=== PATIENT | male | born 1990 | race Caucasian/White ===

== ENCOUNTER 2019-01-23 11:24 | Emergency (ER) | payer SELFPAY ==
[~2019-01-23] VITALS: Ht 172.7 cm; Wt 85.0 kg
[~2019-01-23 11:24] MED LIST: FLUO40CA10; GUAN1TAB15; LORA-52; MOUTHWASH; THO25; [UNRECOGNIZED DRUG - CODE]
[2019-01-23 11:33] VITALS: BP 129/92; Ht 172.7 cm; Wt 85.0 kg
--- NOTE | 2019-01-23 13:07 | ERD ---
ER Documentation Chief Complaint Chief Complaint abdominal pain, nausea, vomiting and diarrhea x 3 days HPI 28-year-old male, previously healthy, presents to the emergency department, complaining of 3 days with intermittent episodes of colicky abdominal pain, followed by watery, nonbloody, nonmucous diarrhea, approximately 4 episodes during the last 24 hours. Otherwise, no fever, no chills. Adequate oral intake for solids and fluids. Normal diuresis. ROS All systems reviewed and are negative except as per history of present illness. Medications Home Meds Active Scripts Acetaminophen* (Tylenol*) 325 Mg Tablet, 2 TAB PO Q6 PRN for PAIN AND OR ELEVATED TEMP, #20 TAB Prov:KARI GUIDO MD 01/23/19 Ranitidine Hcl* (Zantac*) 150 Mg Tablet, 150 MG PO BID PRN for EPIGASTRIC PAIN, #20 TAB Prov:KARI UGIDO MD 01/23/19 Ondansetron Hcl* (Zofran*) 4 Mg Tablet, 4 MG PO Q8H PRN for NAUSEA AND/OR VOMITING, #12 TAB Prov:KARI GUIDO MD 01/23/19 Ciprofloxacin Hcl* (Ciprofloxacin Hcl*) 250 Mg Tablet, 250 MG PO BID for 5 Days, #10 TAB Prov:KARI GUIDO MD 01/23/19 Reported Medications Salicylic Acid (Stri-Dex) 55 Ea Med..pad 05/22/10 Gluc Oxid/L-Peroxid/Muramidase (Biotene Mouthwash) 474 Ml Mouthwash 05/22/10 Loratadine (Alavert) 10 Mg Tablet 05/22/10 Chlorpromazine Hcl* (Thorazine*) 25 Mg Tab 05/22/10 Guanfacine Hcl* (Tenex*) 1 Mg Tablet 05/22/10 Fluoxetine Hcl* (Prozac*) 40 Mg Capsule 05/22/10 Allergies Allergies: Coded Allergies: No Known Drug Allergies (Verified Allergy, Mild, 05/22/10) PMhx/Soc Medical and Surgical Hx: pt denies Medical Hx History of Surgery: No Anesthesia Reaction: No Hx Neurological Disorder: No Hx Respiratory Disorders: No Hx Cardiac Disorders: No Hx Psychiatric Problems: No Hx Miscellaneous Medical Probl: No Hx Alcohol Use: No Hx Substance Use: No Hx Tobacco Use: Yes Smoking Status: Current every day smoker FmHx Family History: No diabetes Physical Exam Vitals Vital Signs Date Temp Pulse Resp B/P (MAP) Pulse Ox O2 O2 Flow FiO2 Time Delivery Rate 01/23/19 107 20 98 Room Air 15:48 01/23/19 98.0 83 18 129/92 99 11:33 (104) Physical Exam Patient alert, oriented, vital signs stable. HEAD: Normocephalic, atraumatic. EYES: PERRLA, EOMI, Sclera and conjunctiva appear normal. NOSE: Clear and patent nostrils. EARS: Canals clear, tympanic membranes WNL. MOUTH: normal lips and tongue, no oral lesions. THROAT: Normal oropharynx, no tonsillar exudates. NECK: Supple, No lymphadenopathy. Full ROM without pain or tenderness. HEART: RRR, no rubs, murmurs, clicks or gallops. LUNGS: Clear to auscultation. ABDOMEN: Soft, non-tender without masses or hepatosplenomegaly. EXTREMITIES: No edema bilaterally. BACK: Full ROM, no deformity, normal back exam NEURO: Cranial nerves grossly intact, no motor or sensory deficit SKIN: No rashes, no petechia. Results 24 hrs Laboratory Tests Test 01/23/19 13:16 Urine Color GAMALIEL Urine Clarity CLOUDY Urine pH 5.0 Urine Specific [place] 1.029 Urine Ketones NEGATIVE mg/dL Urine Nitrite NEGATIVE mg/dL Urine Bilirubin NEGATIVE mg/dL Urine Urobilinogen NEGATIVE mg/dL Urine Leukocyte Esterase NEGATIVE Winter/ul Urine Microscopic RBC 1 /HPF Urine Microscopic WBC 14 /HPF Urine Bacteria FEW /HPF Urine Mucus MANY /HPF Urine Hemoglobin NEGATIVE mg/dL Urine Glucose NEGATIVE mg/dL Urine Total Protein 2+ mg/dl Current Medications Medications Dose Sig/Emmett Start Time Status Last (Trade) Ordered Route PRN Stop Time Admin Dose Reason Admin 650 mg ONCE ONCE 01/23/19 DC 01/23/19 Acetaminophen PO 13:30 01/23/19 13:20 (Tylenol 13:31 Tab) Ondansetron 4 mg ONCE STAT 01/23/19 DC 01/23/19 HCl (Zofran ODT 13:12 01/23/19 13:19 Odt) 13:16 Famotidine 20 mg ONCE ONCE 01/23/19 DC 01/23/19 (Pepcid) PO 13:30 01/23/19 13:19 13:31 Procedures/MDM Physical exam unremarkable, patient in no distress, hydrated, adequate oral intake, abdomen, soft, nontender, no peritoneal signs. Differential diagnosis include but not limited to: gastrointestinal infection ba cterial/viral, UTI, appendicitis, colitis, food poisoning, food intolerance. Low suspicion for acute abdomen Physical examination and clinical presentation consistent most likely with urinary tract infection gastroenteritis. During the ED course the patient remained stable. The patient is stable to be discharged. Some side effects of prescribed medications (headache, rash, nausea, vomiting, diarrhea, interactions with other medications) were reviewed. The patient requires a follow up with the primary care provider in the next 48h. If symptoms persist, worsen or new symptoms develop, then patient should return to the ED immediately. Disclaimer: Inadvertent spelling and grammatical errors are likely due to EHR/dictation software use and do not reflect on the overall quality of patient care. Also, please note that the electronic time recorded on this note does not necessarily reflect the actual time of the patient encounter. Departure Diagnosis: Primary Impression: Abdominal pain Additional Impression: Gastroenteritis Condition: Stable Additional Instructions: Thank you very much for allowing us to participate in your care. Your health and safety is our top priority at [facility]. The evaluation in the emergency department has been done to rule out an acute emergency, therefore, chronic conditions like malignancy or other diseases have not been evaluated; therefore, you need to follow up with a primary care provider in the next 48h. If symptoms persist, worsen or new symptoms develop, then patient should return to the ED immediately. Call your primary care doctor TOMORROW for an appointment during the next 2-4 days and bring all the information provided. Have prescriptions filled and follow precisely the directions on the label. If the symptoms get worse and your provider is unavailable, return to the Emergency Department immediately. KARI GUIDO MD January 23, 2019 13:07
[2019-01-23] MEDS ORDERED: ONDANSETRON (ODT) 4 MG TAB ODT STA (13:12)
[2019-01-23] MEDS ORDERED: FAMOTIDINE 20 MG TAB PO ONE (13:30)
[2019-01-23] MEDS ORDERED: ACETAMINOPHEN 325 MG TAB PO ONE (13:30)
[2019-01-23] MEDS ORDERED: CIPR-193 PO (13:45)
[2019-01-23] MEDS ORDERED: RANI150T35 PO (13:45)
[2019-01-23] MEDS ORDERED: ONDA4TAB8 PO (13:45)
[2019-01-23] MEDS ORDERED: ACET325T33 PO (13:46)
[2019-01-23 15:48] VITALS: PULSE 107; RESP 20
== END 2019-01-23 16:32 | disposition home or self-care (01) ==
LOC: FTE 11:24
DX: K52.9 Noninfective gastroenteritis and colitis, unspecified (principal); F17.210 Nicotine dependence, cigarettes, uncomplicated
CPT/HCPCS: 81001; 99283

== ENCOUNTER 2019-05-30 09:54 | Emergency (ER) | payer OTHER ==
[~2019-05-30] VITALS: Ht 167.6 cm; Wt 65.9 kg
[~2019-05-30 09:54] MED LIST changes: +ACET325T33 PO; +CIPR-193 PO; +ONDA4TAB8 PO; +RANI150T35 PO
[2019-05-30 09:57] VITALS: Ht 167.6 cm; Wt 65.9 kg
[2019-05-30 10:26] VITALS: BP 132/94; PULSE 93; RESP 16
[2019-05-30] MEDS ORDERED: IBUPROFEN 600 MG TAB PO ONE (10:30)
== END 2019-05-30 10:33 | disposition home or self-care (01) ==
LOC: E/R 09:54
DX: R07.89 Other chest pain (principal); F17.210 Nicotine dependence, cigarettes, uncomplicated; Y04.8XXA Assault by other bodily force, initial encounter
CPT/HCPCS: 93005